=== PATIENT | male | born 1940 | race Caucasian/White ===

== ENCOUNTER 2017-01-23 06:41 | Emergency (ER) | payer MEDICARE, BC ==
[~2017-01-23] VITALS: Ht 182.9 cm; Wt 105.0 kg
[~2017-01-23 06:41] MED LIST: AMLO5TAB22 PO; ASPI1TAB7 PO; CARV6.25 PO; CLIN1CAP5 PO; COZA100T PO; FENO160T PO; FISH1000 PO; HYDR12.56 PO; RAMI10CA35 PO; ROSU40 PO; SLO-500T2 PO; TAB-TAB PO
[2017-01-23 06:43] VITALS: BP 203/88; PULSE 74; RESP 16; TEMP 97.6; O2SAT 97
--- NOTE | 2017-01-23 07:24 | PD ---
HPI Chief Complaint: Foreign Body Time Seen by Provider: 07:12 Travel History International Travel<30 days: No Contact w/Intl Traveler<30days: No Traveled to known affect area: No History of Present Illness HPI Is a 76-year-old male who presents today with complaints of left index finger infection. Patient states he was working with wood 3 days ago when he thinks he got a foreign body stuck in the side of his finger. He reports trying to get it out however it has become infected and is draining pus at this time. There is no reported fevers, chills. There is no pain up his arm. It appears to be just at the fingertip at this time. PFSH Past Medical History Hx Anticoagulant Therapy: No Arthritis: Yes Blood Disorders: No Heart Rhythm Problems: No Cancer: No Cardiac Catheterization: Yes Cardiovascular Problems: Yes High Cholesterol: Yes Chemotherapy: No Chest Pain: Yes Congestive Heart Failure: No Cerebrovascular Accident: No Diabetes: No Endocrine: No Gastrointestinal Disorders: Yes GERD: No Glaucoma: No Genitourinary: No Hepatitis: No Hiatal Hernia: No Hypertension: Yes Immune Disorder: No Musculoskeletal: Yes Neurologic: No Reproductive: No Respiratory: No Myocardial Infarction: No Ulcer: No Tetanus Vaccination: < 5 Years Past Surgical History Abdominal Surgery: No AICD: No Appendectomy: No Arteriovenous Shunt: No Cardiac Surgery: No Cholecystectomy: No Coronary Stent: Yes (X3) Ear Surgery: No Endocrine Surgery: No Eye Surgery: Yes Genitourinary Surgery: No Gynecologic Surgery: No Insulin Pump: No Joint Replacement: No Oral Surgery: No Pacemaker: No Thoracic Surgery: No Other Surgery: Yes (CATARACT IMPLANTS) Social History Alcohol Use: No Tobacco Use: No Substance Use: No Allergies-Medications (Allergen,Severity, Reaction): Coded Allergies: No Known Allergies (Verified , 07/18/13) Reported Meds & Prescriptions Reported Meds & Active Scripts Active Hydrocodone-Acetamin 5-325 mg (Hydrocodone/Acetaminophen) 5 Mg-325 Mg Tablet 1 Tab PO Q8HR Clindamycin (Clindamycin HCl) 150 Mg Cap 450 Mg PO Q8HR 10 Days Reported Crestor (Rosuvastatin Calcium) 40 Mg Tab 40 Mg PO DAILY Ramipril 10 Mg Cap 10 Mg PO BID Hydrochlorothiazide 12.5 Mg Cap 12.5 Mg PO DAILY Cozaar (Losartan Potassium) 100 Mg Tab 100 Mg PO DAILY Tricor (Fenofibrate) 145 Mg Tab 145 Mg PO DAILY Takw with food. Coreg (Carvedilol) 6.25 Mg Tab 6.25 Mg PO BID Aspirin 81 Mg Chew 81 Mg CHEW DAILY Amlodipine (Amlodipine Besylate) 5 Mg Tab 5 Mg PO DAILY Review of Systems Except as stated in HPI: all other systems reviewed are Neg General / Constitutional: No: Fever, Chills HENT: No: Headaches, Neck Pain Cardiovascular: No: Chest Pain or Discomfort, Palpitations Respiratory: No: Cough, Shortness of Breath Gastrointestinal: No: Nausea, Abdominal Pain Musculoskeletal: Positive: Edema, Pain (left index finger), Other (drainage) Skin: Positive Lesions (left index finger) Neurologic: No: Headache Physical Exam Narrative GENERAL: Well-nourished, well-developed patient in no acute respiratory distress. SKIN: Focused skin assessment warm/dry. HEAD: Normocephalic/atraumatic. EYES: No scleral icterus. No injection or drainage. MUSCULOSKELETAL: On examination the patient's left index finger, there is redness at the distal DIP joint to the tip. There is what appears to be afebrile on on the lateral nail. There is purulent drainage noted with involvement of the nail. NEUROLOGICAL: Awake and alert. Cranial nerves II through XII intact. Motor grossly within normal limits. Five out of 5 muscle strength in all muscle groups. Normal speech. Data Data Last Documented VS Vital Signs Date Time Temp Pulse Resp B/P (MAP) Pulse Ox O2 Delivery O2 Flow Rate FiO2 01/23/17 07:28 76 17 177/81 (113) 98 Room Air 01/23/17 06:43 97.6 Orders Orders Complete Blood Count With Diff (01/23/17 07:12) Wound Culture And Gram Stain (01/23/17 07:12) Iv Access Insert/Monitor (01/23/17 07:12) Finger ([id number]) (01/23/17 07:12) Bupivacaine Pf 0.25% Inj (Marcaine Pf 0. (01/23/17 08:30) Labs Laboratory Tests Test 01/23/17 07:15 White Blood Count 9.1 TH/MM3 Red Blood Count 4.82 MIL/MM3 Hemoglobin 14.4 GM/DL Hematocrit 43.1 % Mean Corpuscular Volume 89.4 FL Mean Corpuscular Hemoglobin 29.8 PG Mean Corpuscular Hemoglobin Concent 33.3 % Red Cell Distribution Width 14.1 % Platelet Count 232 TH/MM3 Mean Platelet Volume 8.4 FL Neutrophils (%) (Auto) 71.6 % Lymphocytes (%) (Auto) 18.2 % Monocytes (%) (Auto) 8.4 % Eosinophils (%) (Auto) 1.4 % Basophils (%) (Auto) 0.4 % Neutrophils # (Auto) 6.5 TH/MM3 Lymphocytes # (Auto) 1.7 TH/MM3 Monocytes # (Auto) 0.8 TH/MM3 Eosinophils # (Auto) 0.1 TH/MM3 Basophils # (Auto) 0.0 TH/MM3 CBC Comment DIFF FINAL Differential Comment MDM Medical Decision Making Medical Screen Exam Complete: Yes Emergency Medical Condition: Yes Differential Diagnosis Felon versus retained foreign body versus cellulitis Narrative Course 76-year-old male presents today with mental left finger infection. Patient states he was working with wood and thinks he may have had a retained splinter. X-ray shows no evidence of foreign body. The wound has been I and D by SASHA Erwin. He will come back tomorrow for wound check. He is instructed return of he develops any worsening symptoms i.e. fevers, chills or any other reason the concerns him. Diagnosis Primary Impression: left index finger Phalen Additional Instructions: Return tomorrow for a wound check. Return if fevers, chills or any other reason the concerns her. Thank you for choosing [facility] we know you have a choice and healthcare. Med/Other Pt SpecificInfo: Prescription(s) given Scripts Hydrocodone/Acetaminophen (Hydrocodone-Acetamin 5-325 mg) 5 Mg-325 Mg Tablet 1 TAB PO Q8HR for Pain Management, #15 Prov: Oscar Worley MD 01/23/17 Clindamycin (Clindamycin) 150 Mg Cap 450 MG PO Q8HR for Infection for 10 Days, #30 CAP 0 Refills Prov: Oscar Worley MD 01/23/17 Disposition: 01 DISCHARGE HOME Condition: Stable Oscar Worley MD Jan 23, 2017 07:24
[2017-01-23 07:28] VITALS: BP 177/81; PULSE 76; RESP 17; O2SAT 98
[2017-01-23 07:32] LABS: AUTOMATED NEUTROPHIL # 6.5 TH/MM3 (1.8-7.7); BASOPHIL % 0.4 % (0.0-2.0); EOSINOPHIL # 0.1 TH/MM3 (0-0.4); EOSINOPHIL % 1.4 % (0.0-4.0); HEMATOCRIT 43.1 % (39.0-51.0); HEMO FLAGS DIFF FINAL; LYMPH % 18.2 % (9.0-44.0); LYMPHOCYTE # 1.7 TH/MM3 (1.0-4.8); MEAN CELL VOLUME 89.4 FL (80.0-100.0); MEAN CORPUSCULAR HEMOGLOBIN 29.8 PG (27.0-34.0); MEAN CORPUSCULAR HGB CONC 33.3 % (32.0-36.0); MONO % 8.4 % (0.0-8.0); NEUT % 71.6 % (16.0-70.0); PLATELET COUNT 232 TH/MM3 (150-450); RED BLOOD COUNT 4.82 MIL/MM3 (4.50-5.90); RED CELL DISTRIBUTION WIDTH 14.1 % (11.6-17.2); WHITE BLOOD COUNT 9.1 TH/MM3 (4.0-11.0)
[2017-01-23] MEDS ORDERED: RAMI10CA PO (07:35)
[2017-01-23] MEDS ORDERED: COZA100T PO (07:35)
[2017-01-23] MEDS ORDERED: FENO50TA PO (07:35)
[2017-01-23] MEDS ORDERED: ASPI-516 CHEW (07:35)
[2017-01-23] MEDS ORDERED: ROSU40 PO (07:35)
[2017-01-23] MEDS ORDERED: AMLO5TAB2 PO (07:35)
[2017-01-23] MEDS ORDERED: CARV6.25 PO (07:35)
[2017-01-23] MEDS ORDERED: HYDR12.57 PO (07:35)
--- NOTE | 2017-01-23 08:11 | RADRPT ---
EXAM DATE/TIME: 01/23/2017 07:43 [facility] COMPARISON: No previous studies available for comparison. INDICATIONS : Swelling, pus, drainage, discoloration base of nail bed left index finger. MEDICAL HISTORY : None. SURGICAL HISTORY : None. ENCOUNTER: Initial ACUITY: 3 days PAIN SCORE: 10/10 LOCATION: Left index finger. FINDINGS: Examination of the second digit of the left hand demonstrates no evidence of fracture or dislocation. No radiopaque foreign bodies are seen. Soft tissue swelling of the second digit most pronounced at the tuft. CONCLUSION: Soft tissue swelling. Ruy Chilel Jr., MD on January 23, 2017 at 8:08 Board Certified Radiologist. This report was verified electronically.
[2017-01-23] MEDS ORDERED: BUPIVACAINE HCL PF 0.25% 10 ML VIAL NERV BLOCK ONE (08:30)
[2017-01-23] MEDS ORDERED: CLIN150C14 PO (09:18)
[2017-01-23] MEDS ORDERED: HYDR-3516 PO (09:18)
--- NOTE | 2017-01-23 09:29 | PD ---
Physical Exam Date Seen by Provider: Jan 23, 2017 Time Seen by Provider: 09:20 Narrative Well-nourished well-developed 76 year old male patient in no acute distress present to the emergency department for evaluation of left index finger pain and swelling. I was asked by primary provider, Dr. Worley to perform an I&D to the area of fluctuation next to the nailbed. Data Data Last Documented VS Vital Signs Date Time Temp Pulse Resp B/P (MAP) Pulse Ox O2 Delivery O2 Flow Rate FiO2 01/23/17 07:28 76 17 177/81 (113) 98 Room Air 01/23/17 06:43 97.6 Orders Orders Complete Blood Count With Diff (01/23/17 07:12) Wound Culture And Gram Stain (01/23/17 07:12) Iv Access Insert/Monitor (01/23/17 07:12) Finger ([id number]) (01/23/17 07:12) Bupivacaine Pf 0.25% Inj (Marcaine Pf 0. (01/23/17 08:30) Labs Laboratory Tests Test 01/23/17 07:15 White Blood Count 9.1 TH/MM3 Red Blood Count 4.82 MIL/MM3 Hemoglobin 14.4 GM/DL Hematocrit 43.1 % Mean Corpuscular Volume 89.4 FL Mean Corpuscular Hemoglobin 29.8 PG Mean Corpuscular Hemoglobin Concent 33.3 % Red Cell Distribution Width 14.1 % Platelet Count 232 TH/MM3 Mean Platelet Volume 8.4 FL Neutrophils (%) (Auto) 71.6 % Lymphocytes (%) (Auto) 18.2 % Monocytes (%) (Auto) 8.4 % Eosinophils (%) (Auto) 1.4 % Basophils (%) (Auto) 0.4 % Neutrophils # (Auto) 6.5 TH/MM3 Lymphocytes # (Auto) 1.7 TH/MM3 Monocytes # (Auto) 0.8 TH/MM3 Eosinophils # (Auto) 0.1 TH/MM3 Basophils # (Auto) 0.0 TH/MM3 CBC Comment DIFF FINAL Differential Comment MDM Supervised Visit with CATHERINE: Yes Differential Diagnosis Differential diagnoses include but not limited to cellulitis, foreign body, abscess, parenchyma Narrative Course 76-year-old male patient presents emergency department for evaluation of left index finger pain and swelling. I&D was performed. Please see my procedural narrative. Dr. Worley retains care of this patient. Please see his documentation for further details and disposition. Procedures Procedure Narrative INCISION AND DRAINAGE OF ABSCESS: The area was prepped and was sterilely draped. Digit nerve block of the left index finger using 5 mLs Bupivacaine was performed. A number 11 scalpel was used to make a 0.5cm incision across the area of the abscess. The abscess was drained, complex loculations were broken down, and irrigated with normal saline. Cultures were obtained. Sterile dressing applied. Patient advised to return in two days to have the wound reevaluated. Scripts Hydrocodone/Acetaminophen (Hydrocodone-Acetamin 5-325 mg) 5 Mg-325 Mg Tablet 1 TAB PO Q8HR for Pain Management, #15 Prov: Oscar Worley MD 01/23/17 Clindamycin (Clindamycin) 150 Mg Cap 450 MG PO Q8HR for Infection for 10 Days, #30 CAP 0 Refills Prov: Oscar Worley MD 01/23/17 Sheeba Will Jan 23, 2017 09:29
== END 2017-01-23 09:47 | disposition home or self-care (01) ==
LOC: NEPC 06:41
DX: L02.512 Cutaneous abscess of left hand (principal); A49.02 Methicillin resistant Staphylococcus aureus infection, unspecified site; M19.90 Unspecified osteoarthritis, unspecified site; E78.00 Pure hypercholesterolemia, unspecified; I10 Essential (primary) hypertension; Z79.82 Long term (current) use of aspirin; Z79.899 Other long term (current) drug therapy
CPT/HCPCS: 10061; 73140; 85025; 86403; 87070; 87186

== ENCOUNTER 2017-01-24 06:55 | Emergency (ER) | payer MEDICARE, BC ==
[~2017-01-24 06:55] MED LIST changes: +AMLO5TAB2 PO; -AMLO5TAB22 PO; +ASPI-516 CHEW; -ASPI1TAB7 PO; +CLIN150C14 PO; -CLIN1CAP5 PO; -FENO160T PO; +FENO50TA PO; -FISH1000 PO; +HYDR-3516 PO; -HYDR12.56 PO; +HYDR12.57 PO; +RAMI10CA PO; -RAMI10CA35 PO; -SLO-500T2 PO; -TAB-TAB PO
[2017-01-24 07:00] VITALS: BP 141/80; PULSE 64; RESP 14; TEMP 97.7; O2SAT 97
--- NOTE | 2017-01-24 07:36 | PD ---
HPI . Wound Recheck Chief Complaint: Wound/Suture/Staple Re-Check Time Seen by Provider: 07:24 Travel History International Travel<30 days: No Contact w/Intl Traveler<30days: No Traveled to known affect area: No History of Present Illness HPI 76-year-old male patient presents emergency department for a wound recheck. Patient was at our facility yesterday and evaluated for an infection on his left index finger. Patient denies any fever or chills. Patient states that the pain has resolved after the I&D was performed yesterday. Patient had any fever, chills, malaise. Patient retains full range of motion in that finger. The finger is neurovascularly intact. PFSH Past Medical History Hx Anticoagulant Therapy: No Arthritis: Yes Blood Disorders: No Heart Rhythm Problems: No Cancer: No Cardiac Catheterization: Yes Cardiovascular Problems: Yes High Cholesterol: Yes Chemotherapy: No Chest Pain: Yes Congestive Heart Failure: No Cerebrovascular Accident: No Diabetes: No Endocrine: No Gastrointestinal Disorders: Yes GERD: No Glaucoma: No Genitourinary: No Hepatitis: No Hiatal Hernia: No Hypertension: Yes Immune Disorder: No Musculoskeletal: Yes Neurologic: No Reproductive: No Respiratory: No Myocardial Infarction: No Ulcer: No Past Surgical History Abdominal Surgery: No AICD: No Appendectomy: No Arteriovenous Shunt: No Cardiac Surgery: No Cholecystectomy: No Coronary Stent: Yes (X3) Ear Surgery: No Endocrine Surgery: No Eye Surgery: Yes Genitourinary Surgery: No Gynecologic Surgery: No Insulin Pump: No Joint Replacement: No Oral Surgery: No Pacemaker: No Thoracic Surgery: No Other Surgery: Yes (CATARACT IMPLANTS) Social History Alcohol Use: No Tobacco Use: No Substance Use: No Allergies-Medications (Allergen,Severity, Reaction): Coded Allergies: No Known Allergies (Verified , 07/18/13) Reported Meds & Prescriptions Reported Meds & Active Scripts Active Hydrocodone-Acetamin 5-325 mg (Hydrocodone/Acetaminophen) 5 Mg-325 Mg Tablet 1 Tab PO Q8HR Clindamycin (Clindamycin HCl) 150 Mg Cap 450 Mg PO Q8HR 10 Days Reported Crestor (Rosuvastatin Calcium) 40 Mg Tab 40 Mg PO DAILY Ramipril 10 Mg Cap 10 Mg PO BID Hydrochlorothiazide 12.5 Mg Cap 12.5 Mg PO DAILY Cozaar (Losartan Potassium) 100 Mg Tab 100 Mg PO DAILY Tricor (Fenofibrate) 145 Mg Tab 145 Mg PO DAILY Takw with food. Coreg (Carvedilol) 6.25 Mg Tab 6.25 Mg PO BID Aspirin 81 Mg Chew 81 Mg CHEW DAILY Amlodipine (Amlodipine Besylate) 5 Mg Tab 5 Mg PO DAILY Review of Systems Except as stated in HPI: all other systems reviewed are Neg Physical Exam Narrative GENERAL: Well-nourished, well-developed 76-year-old male patient in no acute distress. Nontoxic appearing. SKIN: Focused skin assessment warm/dry. HEAD: Normocephalic. Atraumatic. EYES: No scleral icterus. No injection or drainage. NECK: Supple, trachea midline. No JVD or lymphadenopathy. CARDIOVASCULAR: Regular rate and rhythm without murmurs, gallops, or rubs. RESPIRATORY: Breath sounds equal bilaterally. No accessory muscle use. GASTROINTESTINAL: Abdomen soft, non-tender, nondistended. MUSCULOSKELETAL: Erythema noted to the left index finger DIP joint extending to the finger tip. Purulent drainage noted. Left finger retains full range of motion and is neurovascularly intact. Data Data Last Documented VS Vital Signs Date Time Temp Pulse Resp B/P (MAP) Pulse Ox O2 Delivery O2 Flow Rate FiO2 01/24/17 07:00 97.7 64 14 141/80 (100) 97 MDM Medical Decision Making Medical Screen Exam Complete: Yes Emergency Medical Condition: Yes Differential Diagnosis Differential diagnoses include but not limited to cellulitis, abscess, wound recheck Narrative Course 76-year-old male patient presents emergency department for a index finger wound recheck. Wound care was performed entailing normal saline and Polysporin dressing and a sterile dressing. Wound appears to be healing appropriately. Patient denies any pain this morning prior to the dressing change. Patient has been taking his antibiotics as prescribed yesterday. Patient states he will perform daily wound care. Patient will be advised to return the emergency Department a couple days for wound recheck. Patient discharged home at this time with instructions to continue his antibiotics and wound care. Diagnosis Primary Impression: Encounter for wound re-check Referrals: Primary Care Physician Patient Instructions: Acute Wound Care (DC), General Instructions Additional Instructions: Please return to emergency department if your symptoms return or worsen. Follow up with your primary care provider. Continue taking medication as prescribed. Return to the emergency department in 2 days for wound recheck. Daily dressing changes with soap and water, antibiotic ointment and sterile dressing. Disposition: DISCHARGE HOME Condition: Stable SumanSheeba llamas Celina BAEZ Jan 24, 2017 07:36
== END 2017-01-24 07:59 | disposition home or self-care (01) ==
LOC: NEPK 06:55
DX: Z48.00 Encounter for change or removal of nonsurgical wound dressing (principal); R50.9 Fever, unspecified; E78.00 Pure hypercholesterolemia, unspecified; I10 Essential (primary) hypertension
CPT/HCPCS: 99282

== ENCOUNTER 2017-01-27 06:54 | Emergency (ER) | payer MEDICARE, BC ==
[~2017-01-27] VITALS: Ht 182.9 cm; Wt 100.0 kg
[2017-01-27 06:56] VITALS: BP 191/91; PULSE 76; RESP 18; TEMP 97.5; O2SAT 100
[2017-01-27 07:04] VITALS: BP 175/84
--- NOTE | 2017-01-27 08:04 | RADRPT ---
EXAM DATE/TIME: 01/27/2017 07:51 [facility] COMPARISON: No previous studies available for comparison. INDICATIONS : Complains of pain and swelling of second digit left hand. MEDICAL HISTORY : None. SURGICAL HISTORY : None. ENCOUNTER: Initial ACUITY: 2 days PAIN SCORE: 6/10 LOCATION: Left distal hand second digit FINDINGS: Examination of the second digit of the left hand demonstrates extensive soft tissue swelling. Questio nable linear radiopaque foreign body seen. No fracture or acute bony abnormality. CONCLUSION: 1. Soft tissue swelling distal second digit. 2. Questionable linear radiopaque foreign body. Ezequiel Barahona MD on January 27, 2017 at 7:59 Board Certified Radiologist. This report was verified electronically.
--- NOTE | 2017-01-27 08:19 | PD ---
HPI Chief Complaint: Skin Problem Time Seen by Provider: 08:01 Travel History International Travel<30 days: No Contact w/Intl Traveler<30days: No Traveled to known affect area: No History of Present Illness HPI 76-year-old male presents to the emergency department for wound recheck after incision and drainage of a rosaura to his left index finger on January 23. He' s been taking clindamycin as prescribed. He reports improvement to the wound. Denies fevers, vomiting. Denies paresthesias or loss of sensation to the affected finger. Reports decreased range of motion to the DIP joint. Finger is still mildly edematous and with some erythema. Has been taking clindamycin as prescribed. Reports improvement. No known allergies. Does not have an established primary care provider at this time. Has no other medical complaints. No other modifying factors or associated signs and symptoms. PFSH Past Medical History Hx Anticoagulant Therapy: No Arthritis: Yes Blood Disorders: No Heart Rhythm Problems: No Cancer: No Cardiac Catheterization: Yes Cardiovascular Problems: Yes High Cholesterol: Yes Chemotherapy: No Chest Pain: Yes Congestive Heart Failure: No Cerebrovascular Accident: No Diabetes: No Endocrine: No Gastrointestinal Disorders: Yes GERD: No Glaucoma: No Genitourinary: No Hepatitis: No Hiatal Hernia: No Hypertension: Yes Immune Disorder: No Musculoskeletal: Yes Neurologic: No Reproductive: No Respiratory: No Myocardial Infarction: No Ulcer: No Past Surgical History Abdominal Surgery: No AICD: No Appendectomy: No Arteriovenous Shunt: No Cardiac Surgery: No Cholecystectomy: No Coronary Stent: Yes (X3) Ear Surgery: No Endocrine Surgery: No Eye Surgery: Yes Genitourinary Surgery: No Gynecologic Surgery: No Insulin Pump: No Joint Replacement: No Oral Surgery: No Pacemaker: No Thoracic Surgery: No Other Surgery: Yes (CATARACT IMPLANTS) Social History Alcohol Use: No Tobacco Use: No Substance Use: No Allergies-Medications (Allergen,Severity, Reaction): Coded Allergies: No Known Allergies (Verified Adverse Reaction, Unknown, 01/27/17) Reported Meds & Prescriptions Reported Meds & Active Scripts Active Hydrocodone-Acetamin 5-325 mg (Hydrocodone/Acetaminophen) 5 Mg-325 Mg Tablet 1 Tab PO Q8HR Clindamycin (Clindamycin HCl) 150 Mg Cap 450 Mg PO Q8HR 10 Days Reported Crestor (Rosuvastatin Calcium) 40 Mg Tab 40 Mg PO DAILY Ramipril 10 Mg Cap 10 Mg PO BID Hydrochlorothiazide 12.5 Mg Cap 12.5 Mg PO DAILY Cozaar (Losartan Potassium) 100 Mg Tab 100 Mg PO DAILY Tricor (Fenofibrate) 145 Mg Tab 145 Mg PO DAILY Takw with food. Coreg (Carvedilol) 6.25 Mg Tab 6.25 Mg PO BID Aspirin 81 Mg Chew 81 Mg CHEW DAILY Amlodipine (Amlodipine Besylate) 5 Mg Tab 5 Mg PO DAILY Review of Systems Except as stated in HPI: all other systems reviewed are Neg Physical Exam Narrative GENERAL: Well-nourished, well-developed elderly, male patient, in no acute distress SKIN: Warm and dry. Distal aspect of left index finger with a healing wound; there is erythema and edema noted to the distal aspect of the finger; DIP joint with decreased range of motion; minimal amount of bright red drainage from the wound site; sensory intact; no lymphangitis. HEAD: Atraumatic. Normocephalic. EYES: Pupils equal and round. No scleral icterus. No injection or drainage. ENT: Mucosa pink and moist. Airway patent. NECK: Trachea midline. CARDIOVASCULAR: Regular rate. RESPIRATORY: No accessory muscle use. GASTROINTESTINAL: Rounded. MUSCULOSKELETAL: No obvious deformities. No clubbing. No cyanosis. No edema. NEUROLOGICAL: Awake and alert. Oriented 3. No obvious cranial nerve deficits. Motor grossly within normal limits. Normal speech. PSYCHIATRIC: Appropriate mood and affect; insight and judgment normal. Data Data Last Documented VS Vital Signs Date Time Temp Pulse Resp B/P (MAP) Pulse Ox O2 Delivery O2 Flow Rate FiO2 01/27/17 08:25 159/84 (109) 01/27/17 06:56 97.5 76 18 100 Room Air Orders Orders Finger ([id number]) (01/27/17 ) Ed Discharge Order (01/27/17 08:19) MDM Medical Decision Making Medical Screen Exam Complete: Yes Emergency Medical Condition: Yes Medical Record Reviewed: Yes Differential Diagnosis Wound recheck, osteomyelitis, medical clearance Narrative Course 76-year-old male comes for wound recheck after incision and drainage of felon of left second digit on January 23. He is taking clindamycin which is susceptible to the wound culture. He reports improvement in symptoms. I will x -ray the finger to rule out osteomyelitis. Left second finger x-ray ordered. 0818: Finger x-ray concludes: Finger X-Ray 01/27/17 0000 Signed Impressions: Service Date/Time: Friday, January 27, 2017 07:51 - CONCLUSION: 1. Soft tissue swelling distal second digit. 2. Questionable linear radiopaque foreign body. Ezequiel Barahona MD Instructed patient to follow up with hand surgeon. Patient provided a copy of the x-ray report. Instructed patient to continue clindamycin as prescribed. Patient provided information to follow-up with Dr. Brenda Schwartz. Instructed patient to follow up with primary care provider. Patient verbalizes understanding and agreement with treatment plan. Patient is medically cleared and stable for discharge. Discussed reasons to return to the emergency department. Patient agrees with treatment plan. The patients vital signs are stable and the patient is stable for outpatient follow-up and treatment. Patient discharged home, stable and in no acute distress. Diagnosis Primary Impression: Encounter for wound re-check Additional Impression: Soft tissues foreign body Referrals: Brenda Schwartz MD Hand Surgeon Primary Care Physician Patient Instructions: Acute Wound Care (GEN), General Instructions, Soft Tissue Foreign Body (ED) Additional Instructions: Continue antibiotics as prescribed Tylenol as directed and as needed for pain and inflammation Warm salt water soaks a few times daily Topical antibiotic ointment, such as Neosporin, as directed and as needed for wound care Follow up with hand surgeon within 1-2 days; Dr. Brenda Schwartz is a hand surgeon with [place]; you can call her office to make an appointment or any hand surgeon of choice Follow-up with primary care provider Return to the emergency department immediately with worsening of symptoms Med/Other Pt SpecificInfo: No Change to Meds, No Meds Exist/No RX given Disposition: 01 DISCHARGE HOME Condition: Stable Danna Garrido Jan 27, 2017 08:19
[2017-01-27 08:25] VITALS: BP 159/84
== END 2017-01-27 08:25 | disposition home or self-care (01) ==
LOC: NEPD 06:54
DX: M79.89 Other specified soft tissue disorders (principal); M19.90 Unspecified osteoarthritis, unspecified site; E78.00 Pure hypercholesterolemia, unspecified; I10 Essential (primary) hypertension; Z51.89 Encounter for other specified aftercare; Z79.82 Long term (current) use of aspirin; Z79.899 Other long term (current) drug therapy
CPT/HCPCS: 73140; 99283

== ENCOUNTER 2017-06-04 08:53 | Emergency (ER) | payer MEDICARE, BC ==
[2017-06-04 08:56] VITALS: BP 186/84; PULSE 95; RESP 16; TEMP 97.6; O2SAT 96
--- NOTE | 2017-06-04 09:02 | PD ---
HPI Chief Complaint: Skin Problem Time Seen by Provider: 09:00 Travel History International Travel<30 days: No Contact w/Intl Traveler<30days: No Traveled to known affect area: No History of Present Illness HPI Patient comes in complaining of redness and swelling to the left external ear and surrounding skin area over the past 2 days. Rated as a 7 out of 10 with movement only. Patient denies any associated factors such as fever, runny nose , sore throat, cough, nausea, vomiting or diarrhea. Patient also denies any chest pain abdominal pain flank pain or back pain. Patient denies any alleviating or aggravating factors. No known drug allergy Past medical history significant for bilateral cataracts, cardiac catheterization with stent 3, hypercholesterolemia, hypertension, GERD arthritis. PFSH Past Medical History Hx Anticoagulant Therapy: No Arthritis: Yes Blood Disorders: No Heart Rhythm Problems: No Cancer: No Cardiac Catheterization: Yes Cardiovascular Problems: Yes High Cholesterol: Yes Chemotherapy: No Chest Pain: Yes Congestive Heart Failure: No Cerebrovascular Accident: No Diabetes: No Endocrine: No Gastrointestinal Disorders: Yes GERD: No Glaucoma: No Genitourinary: No Hepatitis: No Hiatal Hernia: No Hypertension: Yes Immune Disorder: No Musculoskeletal: Yes Neurologic: No Reproductive: No Respiratory: No Myocardial Infarction: No Ulcer: No Past Surgical History Abdominal Surgery: No AICD: No Appendectomy: No Arteriovenous Shunt: No Cardiac Surgery: No Cholecystectomy: No Coronary Stent: Yes (X3) Ear Surgery: No Endocrine Surgery: No Eye Surgery: Yes Genitourinary Surgery: No Gynecologic Surgery: No Insulin Pump: No Joint Replacement: No Oral Surgery: No Pacemaker: No Thoracic Surgery: No Other Surgery: Yes (CATARACT IMPLANTS) Social History Alcohol Use: No Tobacco Use: No Substance Use: No Allergies-Medications (Allergen,Severity, Reaction): Coded Allergies: No Known Allergies (Verified Allergy, Unknown, 06/04/17) Reported Meds & Prescriptions Reported Meds & Active Scripts Active Reported Crestor (Rosuvastatin Calcium) 40 Mg Tab 40 Mg PO DAILY Ramipril 10 Mg Cap 10 Mg PO BID Hydrochlorothiazide 12.5 Mg Cap 12.5 Mg PO DAILY Cozaar (Losartan Potassium) 100 Mg Tab 100 Mg PO DAILY Tricor (Fenofibrate) 145 Mg Tab 145 Mg PO DAILY Takw with food. Coreg (Carvedilol) 6.25 Mg Tab 6.25 Mg PO BID Aspirin 81 Mg Chew 81 Mg CHEW DAILY Amlodipine (Amlodipine Besylate) 5 Mg Tab 5 Mg PO DAILY Review of Systems General / Constitutional: No: Fever Eyes: No: Visual changes HENT: Positive: Earache Cardiovascular: No: Chest Pain or Discomfort Respiratory: No: Shortness of Breath Gastrointestinal: No: Abdominal Pain Genitourinary: No: Dysuria Musculoskeletal: No: Pain Skin: No Rash Neurologic: No: Weakness Psychiatric: No: Depression Endocrine: No: Polydipsia Hematologic/Lymphatic: No: Easy Bruising Physical Exam Narrative GENERAL: SKIN: Warm and dry. HEAD: Atraumatic. Normocephalic. EYES: Pupils equal and round. No scleral icterus. No injection or drainage. ENT: No nasal bleeding or discharge. Mucous membranes pink and moist. Erythema to the external ear earlobe antihelix helix and the parotid region as well this extended cellulitis. With edema. The actual eustachian canal has been spared at this present moment and able to see into the tympanic membrane which is also within normal limits NECK: Trachea midline. No JVD. CARDIOVASCULAR: Regular rate and rhythm. RESPIRATORY: No accessory muscle use. Clear to auscultation. Breath sounds equal bilaterally. GASTROINTESTINAL: Abdomen soft, non-tender, nondistended. Hepatic and splenic margins not palpable. MUSCULOSKELETAL: Extremities without clubbing, cyanosis, or edema. No obvious deformities. NEUROLOGICAL: Awake and alert. No obvious cranial nerve deficits. Motor grossly within normal limits. Five out of 5 muscle strength in the arms and legs. Normal speech. PSYCHIATRIC: Appropriate mood and affect; insight and judgment normal. Data Data Last Documented VS Vital Signs Date Time Temp Pulse Resp B/P (MAP) Pulse Ox O2 Delivery O2 Flow Rate FiO2 06/04/17 08:56 97.6 95 16 186/84 (118) 96 Orders Orders Ceftazidime Inj (Fortaz Inj) (06/04/17 09:15) Iv Access Insert/Monitor (06/04/17 09:14) MDM Medical Decision Making Medical Screen Exam Complete: Yes Emergency Medical Condition: Yes Medical Record Reviewed: Yes Differential Diagnosis Otitis media versus otitis externa versus otitis externa with cellulitis Narrative Course Patient will be receiving IV ceftazidime 1 once that is completed the patient will be discharged home on p.o. antibiotics and referred to ENT Diagnosis Primary Impression: Otitis externa left Referrals: eKi Alexis MD you were given fortaz iv in emergency deparment and discharged with cipro oral antibiotics Patient Instructions: General Instructions, Otitis Externa (ED) Disposition: 01 DISCHARGE HOME Condition: Stable Jigar Yang MD Jun 04, 2017 09:02
[2017-06-04] MEDS ORDERED: cefTAZidime INJ 1,000 MG in SODIUM CHLORIDE 0.9% INJ 100 ML IV ONE (09:15)
[2017-06-04] MEDS ORDERED: BACT800T5 PO (09:46)
[2017-06-04] MEDS ORDERED: CIPR-9 PO (09:46)
== END 2017-06-04 11:42 | disposition home or self-care (01) ==
LOC: NEPE 08:53
DX: H60.92 Unspecified otitis externa, left ear (principal); E78.00 Pure hypercholesterolemia, unspecified; I10 Essential (primary) hypertension; K21.9 Gastro-esophageal reflux disease without esophagitis; M19.90 Unspecified osteoarthritis, unspecified site; Z79.82 Long term (current) use of aspirin; Z79.899 Other long term (current) drug therapy
CPT/HCPCS: 96365; 99284; J0713